=== PATIENT | male | born 1965 | race Caucasian/White ===

== ENCOUNTER 2016-06-08 11:17 | Emergency (ER) | payer BC ==
[~2016-06-08] VITALS: Ht 172.7 cm; Wt 68.4 kg
[2016-06-08 13:08] VITALS: BP 138/74
== END 2016-06-08 13:10 | disposition home or self-care (01) ==
LOC: EME 11:17
DX: S93.602A Unspecified sprain of left foot, initial encounter (principal); S90.32XA Contusion of left foot, initial encounter; W00.0XXA Fall on same level due to ice and snow, initial encounter
CPT/HCPCS: 73630; 99281; 99283